=== PATIENT | female | born 1970 | race African-American/Black ===

== ENCOUNTER 2024-04-24 13:44 | Emergency (ER) | payer OTHER ==
[~2024-04-24] VITALS: Ht 167.6 cm; Wt 70.0 kg
[2024-04-24 13:47] VITALS: O2SAT 100
[2024-04-24] MEDS: PREDNISONE 20MG TABLET PO STA (15:10)
[2024-04-24] MEDS ORDERED: IPRATROPIUM BROMIDE (0.02%) 0.5MG/2.5ML NEB HHN STA (15:10)
[2024-04-24] MEDS ORDERED: ALBUTEROL (0.083%) 2.5MG/3ML NEB HHN STA (15:10)
[2024-04-24 16:10] LABS: HEMATOCRIT. 43.5 % (36.0-48.0); HEMOGLOBIN. 14.1 g/dL (12.0-16.0); MEAN CORPUSCULAR HEMOGLOBIN 27.9 pg (28.0-32.0); MEAN CORPUSCULAR HGB CONC 32.5 g/dL (31.0-37.0); MEAN CORPUSCULAR VOLUME 85.8 fL (81.0-99.0); MEAN PLATELET VOLUME 8.4 fl (7.4-10.4); PLATELET 320 x1000/uL (130-400); RED BLOOD CELL COUNT 5.07 mill/uL (4.2-5.4); RED CELL DISTRIBUTION WIDTH 13.7 % (11.6-14.6); WHITE BLOOD COUNT 7.5 x1000/uL (4.5-11.0)
[2024-04-24 16:15] LABS: CHLORIDE 104 mEq/L (98-107); POTASSIUM 3.3 mEq/L (3.5-5.1); SODIUM 139 mEq/L (136-145)
[2024-04-24 16:16] LABS: CALCIUM 9.8 mg/dL (8.7-10.4); CARBON DIOXIDE 26 mEq/L (21-32)
[2024-04-24 16:20] LABS: PROTHROMBIN TIME 10.8 sec (9.6-11.0)
[2024-04-24 16:21] LABS: GLUCOSE 97 mg/dL (70-105)
[2024-04-24 16:22] LABS: DIFFERENTIAL COMMENT 1; UREA NITROGEN BLOOD 16 mg/dL (9-23)
[2024-04-24 16:23] LABS: ALANINE AMINOTRANSFERASE 14 IU/L (10-49); ALBUMIN 4.4 g/dL (3.2-4.8); ASPARTATE AMINOTRANSFERASE 20 IU/L (<34); BILIRUBIN DIRECT 0.2 mg/dL (<=3.0); TROPONIN I HIGH SENSITIVITY 25 ng/L (3.0-34)
[2024-04-24 16:24] LABS: BILIRUBIN TOTAL 0.7 mg/dL (0.1-1.0)
[2024-04-24 17:15] VITALS: PULSE 81; RESP 20
[2024-04-24] MEDS: IPRATROPIUM BROMIDE (0.02%) 0.5MG/2.5ML NEB HHN NR (17:15)
[2024-04-24] MEDS: ALBUTEROL (0.083%) 2.5MG/3ML NEB HHN NR (17:15)
[2024-04-24 17:34] LABS: PLATELET ESTIMATE NORMAL
[2024-04-24 18:20] LABS: TROPONIN I HIGH SENSITIVITY 34 ng/L (3.0-34)
[2024-04-24] MEDS ORDERED: P20 MT (21:54)
[2024-04-24 22:02] VITALS: BP 153/76; PULSE 69; RESP 19; TEMP 36.83628; O2SAT 99
== END 2024-04-24 22:05 | disposition home or self-care (01) ==
LOC: ER 14:03
DX: B34.9 Viral infection, unspecified (principal); J45.901 Unspecified asthma with (acute) exacerbation; I10 Essential (primary) hypertension; Z77.018 Contact with and (suspected) exposure to other hazardous metals
CPT/HCPCS: 99291; 80076; 80048; 81025; 83880; 83690; 85025; 85610; 84484; 36415; 71045; 94640; 93005; J7512